=== PATIENT | male | born 1970 | race Asian ===

== ENCOUNTER 2024-03-29 21:42 | Observation (INO) ==
[2024-03-29 22:01] VITALS: O2SAT 97
[2024-03-29 22:08] LABS: Basophils # (auto) 0.02 K/uL (0.00-0.20); Basophils % (auto) 0.3 %; Eosinophils # (auto) 0.06 K/uL (0.00-0.50); Eosinophils % (auto) 0.9 %; Hematocrit (blood only) 46.7 % (42.0-52.0); Immature Granulocytes # (auto) 0.02 K/uL (0.01-0.20); Immature Granulocytes % (auto) 0.3 %; Lymphocytes # (auto) 2.38 K/uL (1.20-3.40); Lymphocytes % (auto) 34.7 %; Mean Corpuscular Hemoglobin 29.9 pg (25.0-34.0); Mean Corpuscular Hgb Conc 34.3 g/dL (32.0-36.0); Mean Corpuscular Volume 87.1 fL (80.0-100.0); Mean Platelet Volume 9.2 fL (9.4-12.4); Monocytes # (auto) 0.36 K/uL (0.11-0.59); Monocytes % (auto) 5.2 %; Neutrophils # (auto) 4.02 K/uL (1.40-6.50); Neutrophils % (auto) 58.6 %; Platelet Count 181 K/uL (130-400); RDW Coefficient of Variation 12.7 % (11.5-14.5); RDW Standard Deviation 39.6 fL (36.4-46.3); Red Blood Count 5.36 M/uL (4.70-6.10); White Blood Count 6.86 K/ul (4.8-10.8)
[2024-03-29 22:24] LABS: Albumin Globulin Ratio 1.4 (0.9-2); Albumin Level 4.2 gm/dl (3.4-5.0); BUN Creatinine Ratio 13.8 (10-20); Bilirubin,Total 0.9 mg/dl (0.2-1.0); Calcium 8.4 mg/dl (8.6-10.3); Creatinine Clr Calc Pharmacy 64.1 ml/min; Est GFR (African American) 82.9 ml/min; Est GFR (Non-African American) 71.5 ml/min; Magnesium 2.1 mg/dl (1.7-2.4); Potassium 4.2 mmol/L (3.5-5.1); Total Protein 7.2 gm/dl (6.0-8.3)
[2024-03-29 22:30] LABS: Troponin I High Sensitivity 21.3 pg/ml (0-20)
[2024-03-29 22:32] LABS: Prothrombin Time 10.9 Seconds (9.0-12.0)
[2024-03-29 22:52] LABS: Appearance Urine Clear (Clear); Bilirubin Urine Negative (Negative); Blood Urine Negative (Negative); Color Urine Yellow; Glucose Urine UA 2+ (Negative); Ketones Urine Negative (Negative); Leukocyte Esterase Urine Negative (Negative); Nitrite Urine Negative (Negative); Protein Urine Negative (Negative); Specific Gravity Urine 1.006 (1.000-1.030); Urobilinogen Urine Negative (Negative)
[2024-03-29 23:01] LABS: Adenovirus PCR Not Detected (NotDetected); Bordetella parapertussis PCR Not Detected (NotDetected); Bordetella pertussis PCR Not Detected (NotDetected); Chlamydia pneumoniae PCR Not Detected (NotDetected); Coronavirus 229E PCR Not Detected (NotDetected); Coronavirus CoV-2 (COVID19)PCR Not Detected (NotDetected); Coronavirus HKU1 PCR Not Detected (NotDetected); Coronavirus NL63 PCR Not Detected (NotDetected); Coronavirus OC43PCR Not Detected (NotDetected); Human Metapneumovirus PCR Not Detected (NotDetected); Influenza A PCR Not Detected (NotDetected); Influenza B PCR Not Detected (NotDetected); Mycoplasma pneumoniae PCR Not Detected (NotDetected); Parainfluenza Virus 1 PCR Not Detected (NotDetected); Parainfluenza Virus 2 PCR Not Detected (NotDetected); Parainfluenza Virus 3 PCR Not Detected (NotDetected); Parainfluenza Virus 4 PCR Not Detected (NotDetected); Respiratory Syncytial VirusPCR Not Detected (NotDetected); Rhinovirus/Enterovirus PCR Not Detected (NotDetected)
[2024-03-29 23:25] LABS: D Dimer 350 ug/L FEU (0-500)
--- NOTE | 2024-03-29 23:36 | Emergency Department Note ---
Impression & Plan Chest pain, Elevated troponin, Hypertension, Acute hyperglycemia ED Provider Note NAME: JEANETH OSEGUERA AGE: 54 SEX: M : 1970 ARRIVES VIA: Ambulance INFORMANT: Patient ED PROVIDER(S): Cristofer Marcelo DO CHIEF COMPLAINT: shortness of breath HPI: Patient is a 54-year-old male with a past medical history of CAD and 3 previous stents placed last year who presents to the ER for shortness of breath that he has been having off and on for the past couple days. He notes if he eats it goes away within about 30 minutes. He has also noticed some exertional shortness of breath of the past 2 days with walking. He was seen and evaluated at an outside facility had unremarkable workup yesterday and was discharged. Denies any headache. He will intermittently get some chest tightness with the shortness of breath which occurs with "going up steps or walking. No dysuria, urgency, or frequency. No swelling of his cast. No coughing up blood. ADDITIONAL HISTORY OBTAINED: Per HPI Chronic Medical/Social Conditions Affecting Care: Per HPI PAST MEDICAL HISTORY:See Below PAST SURGICAL HISTORY:See Below FAMILY HISTORY:See Below SOCIAL HISTORY:See Below HOME MEDICATIONS:See Below ALLERGIES:See Below VITALS:See Below PHYSICAL EXAMINATION: GENERAL: Sitting up in bed, alert, well appearing, well nourished, no distress, non-toxic EYE EXAM: normal conjunctiva. PERRL and EOM's grossly intact. OROPHARYNX: no exudate, no erythema, lips, buccal mucosa, and tongue normal and mucous membranes are moist NECK: supple, no nuchal rigidity, no adenopathy, non-tender LUNGS: Clear to auscultation. Normal chest wall mechanics HEART: no murmurs, S1 normal and S2 normal ABDOMEN: abdomen soft, non-tender, normo-active bowel sounds, no masses, no rebound or guarding. UPPER EXTREMITIES: upper extremities are grossly normal. LOWER EXTREMITIES: No pitting edema. Calves are cold bilaterally NEURO EXAM: Normal sensorium, cranial nerves II-XII intact, normal speech, no gross weakness of arms, no gross weakness of legs. MEDICAL DECISION MAKING: Patient is a 54-year-old male who presents ER for the above-stated complaint. IV was established medicos obtained. Labs show no significant leukocytosis or anemia. INR unremarkable. D-dimer was negative and otherwise low risk patient. BMP with mild hyponatremia 134. Glucose slightly up at 242. LFTs bilirubin was unremarkable. Troponin mildly elevated 21. UA was clean. Viral panel was negative. Patient was given aspirin and initially he was asymptomatic but he did have a brief episode of shortness of breath and consequently was given nitro. This did assist with the blood pressures as well. Patient was discussed with the hospitalist for further evaluation management treatment. Consults/Care Managements Discussions: Per MDM Triage Nursing notes reviewed. Limited review of prior medical records performed Vital Signs: reviewed and remarkable for htn Differential diagnosis: Differential diagnoses includes but is not limited to pneumonia, bronchitis, COPD/Asthma exacerbation, pneumothorax, pulmonary embolism, congestive heart failure, acute coronary syndrome ER treatment provided: See below Diagnostics interpreted by me include EKG and cardiac monitoring as listed below: -Cardiac Monitoring: An order was placed for continuous cardiac monitoring. The monitor shows a rate of 101 with sinus rhythm. -ECG: Sinus tachycardia rate of 104 Left axis No PVCs QTc 436 -Laboratory studies:Interpreted by me as stated above in MDM and shown below. Imaging studies: Xrays: As interpreted by me: Portable AP upright 1 view of the chest shows no focal Lutrate CTs show: none Procedures:none Critical Care: None Past Med/Surg History Problem List (Updated 03/30/24 @ 01:13 by Cristofer Marcelo DO) Acute hyperglycemia (Acute) Hypertension (Acute) Elevated troponin (Acute) Chest pain (Acute) Social History Smoking Status: Never smoker Preferred Language: Serbian Feels Safe at Home: Yes Allergies Allergies Allergy/AdvReac Type Severity Reaction Status Date / Time amoxicillin Allergy Intermediate ITCHY RASH Verified 03/29/24 22:46 clopidogrel [From Plavix] Allergy Intermediate ITCHY RASH Verified 03/29/24 22:46 Penicillins Allergy Intermediate ITCHY RASH Verified 03/29/24 22:46 Home Meds Home Medications Medication Instructions Recorded Confirmed aspirin 81 mg tablet,delayed 81 mg PO DAILY 03/29/24 03/29/24 release dapagliflozin propanediol 10 mg 10 mg PO DAILY 03/29/24 03/29/24 tablet (Farxiga) losartan 25 mg tablet 12.5 mg PO DAILY 03/29/24 03/29/24 metoprolol succinate 50 mg 50 mg PO DAILY 03/29/24 03/29/24 tablet,extended release 24 hr prasugrel 10 mg tablet 10 mg PO DAILY 03/29/24 03/29/24 rosuvastatin 20 mg tablet 20 mg PO DAILY 03/29/24 03/29/24 Results & Data (ED) Vital Signs Vital Signs - 24 hr 03/29/24 21:51 03/29/24 21:51 03/29/24 21:51 Temperature 36.6 C Temperature Source Oral Pulse Rate 100 H Pulse Rate [Apical] Pulse Rhythm Regular Pulse Strength Normal Respiratory Rate 18 Respiratory Effort / Characteristics Non-Labored Spontaneous Non-Labored Spontaneous Respiratory Depth Normal Normal Respiratory Pattern Regular Regular Blood Pressure 154/112 H Blood Pressure [Left Arm] Blood Pressure Mean 126 Blood Pressure Mean [Left Arm] Blood Pressure Position Sitting Pulse Oximetry 97 97 Oxygen Delivery Method Room Air Room Air Sepsis Recent Fever Within 48 Hours No Sepsis New/Unexplained Change in Mental Status No Sepsis Action Taken by Nursing No Action Required 03/29/24 22:01 03/29/24 22:02 03/29/24 23:47 Temperature Temperature Source Pulse Rate 100 H 101 H Pulse Rate [Apical] 104 H Pulse Rhythm Regular Pulse Strength Respiratory Rate 16 15 Respiratory Effort / Characteristics Respiratory Depth Respiratory Pattern Blood Pressure Blood Pressure [Left Arm] 167/120 H Blood Pressure Mean Blood Pressure Mean [Left Arm] 135 Blood Pressure Position Pulse Oximetry 97 97 Oxygen Delivery Method Room Air Room Air Sepsis Recent Fever Within 48 Hours Sepsis New/Unexplained Change in Mental Status Sepsis Action Taken by Nursing 03/30/24 01:04 Temperature Temperature Source Pulse Rate Pulse Rate [Apical] 99 H Pulse Rhythm Pulse Strength Respiratory Rate 24 Respiratory Effort / Characteristics Non-Labored Spontaneous Respiratory Depth Normal Respiratory Pattern Regular Blood Pressure Blood Pressure [Left Arm] 149/107 H Blood Pressure Mean Blood Pressure Mean [Left Arm] 121 Blood Pressure Position Pulse Oximetry 97 Oxygen Delivery Method Room Air Sepsis Recent Fever Within 48 Hours Sepsis New/Unexplained Change in Mental Status Sepsis Action Taken by Nursing Laboratory Data 03/29/24 21:50 03/29/24 21:50 Lab Results 03/29/24 03/29/24 03/29/24 Range/Units 21:50 22:03 22:21 WBC 6.86 (4.8-10.8) K/ul RBC 5.36 (4.70-6.10) M/uL Hgb 16.0 (14.0-18.0) g/dl Hct 46.7 (42.0-52.0) % MCV 87.1 (80.0-100.0) fL MCH 29.9 (25.0-34.0) pg MCHC 34.3 (32.0-36.0) g/dL RDW Std Deviation 39.6 (36.4-46.3) fL RDW Coeff of Tayler 12.7 (11.5-14.5) % Plt Count 181 (130-400) K/uL MPV 9.2 L (9.4-12.4) fL Immature Gran % (Auto) 0.3 % Neut % (Auto) 58.6 % Lymph % (Auto) 34.7 % Bullitt % (Auto) 5.2 % Eos % (Auto) 0.9 % Baso % (Auto) 0.3 % Neut # (Auto) 4.02 (1.40-6.50) K/uL Lymph # (Auto) 2.38 (1.20-3.40) K/uL Bullitt # (Auto) 0.36 (0.11-0.59) K/uL Eos # (Auto) 0.06 (0.00-0.50) K/uL Baso # (Auto) 0.02 (0.00-0.20) K/uL Immature Gran # (Auto) 0.02 (0.01-0.20) K/uL PT 10.9 (9.0-12.0) Seconds INR 1.0 (0.9-1.1) D-Dimer 350 (0-500) ug/L FEU VBG pH (7.36-7.41) VBG pCO2 (38-50) mmHg VBG pO2 mmHg VBG HCO3 mmol/L VBG O2 Saturation % VBG Base Excess mEq/L Sodium 134 L (136-145) mmol/L Potassium 4.2 (3.5-5.1) mmol/L Chloride 102 (98-107) mmol/L Carbon Dioxide 29 (21-32) mmol/L Anion Gap 3 (3-11) BUN 16 (6-23) mg/dl Creatinine 1.16 (0.6-1.4) mg/dl Est Cr Clr Drug Dosing 64.1 ml/min Est GFR ( Amer) 82.9 ml/min Est GFR (Non-Af Amer) 71.5 ml/min BUN/Creatinine Ratio 13.8 (10-20) Glucose 242 H (70-99(Fasting)) mg/dl Calcium 8.4 L (8.6-10.3) mg/dl Magnesium 2.1 (1.7-2.4) mg/dl Total Bilirubin 0.9 (0.2-1.0) mg/dl AST 21 (13-39) U/L ALT 22 (7-52) U/L Alkaline Phosphatase 95 (34-104) U/L Troponin I High Sens 21.3 H (0-20) pg/ml B-Natriuretic Peptide (0-100) pg/ml Total Protein 7.2 (6.0-8.3) gm/dl Albumin 4.2 (3.4-5.0) gm/dl Globulin 3.0 (2.5-4.0) gm/dl Albumin/Globulin Ratio 1.4 (0.9-2) Urine Color Yellow Urine Appearance Clear (Clear) Urine pH 6.0 (4.5-7.5) Ur Specific Bishop 1.006 (1.000-1.030) Urine Protein Negative (Negative) Urine Glucose (UA) 2+ H (Negative) Urine Ketones Negative (Negative) Urine Blood Negative (Negative) Urine Nitrite Negative (Negative) Urine Bilirubin Negative (Negative) Urine Urobilinogen Negative (Negative) Ur Leukocyte Esterase Negative (Negative) Adenovirus (PCR) Not Detected (NotDetected) B. pertussis DNA (PCR) Not Detected (NotDetected) B.parapertussis DNA PCR Not Detected (NotDetected) C. pneumoniae DNA (PCR) Not Detected (NotDetected) Coronavirus OC43 (PCR) Not Detected (NotDetected) Coronavirus HKU1 (PCR) Not Detected (NotDetected) Coronavirus 229E (PCR) Not Detected (NotDetected) SARS-CoV-2 (PCR) Not Detected (NotDetected) Coronavirus NL63 (PCR) Not Detected (NotDetected) Human Metapneumovir PCR Not Detected (NotDetected) Influenza Type A (PCR) Not Detected (NotDetected) Influenza Type B (PCR) Not Detected (NotDetected) M. pneumoniae (PCR) Not Detected (NotDetected) Parainfluenza 1 (PCR) Not Detected (NotDetected) Parainfluenza 2 (PCR) Not Detected (NotDetected) Parainfluenza 3 (PCR) Not Detected (NotDetected) Parainfluenza 4 (PCR) Not Detected (NotDetected) RSV (PCR) Not Detected (NotDetected) Entero/Rhino (PCR) Not Detected (NotDetected) 03/29/24 Range/Units 23:46 WBC (4.8-10.8) K/ul RBC (4.70-6.10) M/uL Hgb (14.0-18.0) g/dl Hct (42.0-52.0) % MCV (80.0-100.0) fL MCH (25.0-34.0) pg MCHC (32.0-36.0) g/dL RDW Std Deviation (36.4-46.3) fL RDW Coeff of Tayler (11.5-14.5) % Plt Count (130-400) K/uL MPV (9.4-12.4) fL Immature Gran % (Auto) % Neut % (Auto) % Lymph % (Auto) % Bullitt % (Auto) % Eos % (Auto) % Baso % (Auto) % Neut # (Auto) (1.40-6.50) K/uL Lymph # (Auto) (1.20-3.40) K/uL Bullitt # (Auto) (0.11-0.59) K/uL Eos # (Auto) (0.00-0.50) K/uL Baso # (Auto) (0.00-0.20) K/uL Immature Gran # (Auto) (0.01-0.20) K/uL PT (9.0-12.0) Seconds INR (0.9-1.1) D-Dimer (0-500) ug/L FEU VBG pH 7.41 (7.36-7.41) VBG pCO2 48 (38-50) mmHg VBG pO2 39 mmHg VBG HCO3 30 mmol/L VBG O2 Saturation 64.6 % VBG Base Excess 4.8 mEq/L Sodium (136-145) mmol/L Potassium (3.5-5.1) mmol/L Chloride (98-107) mmol/L Carbon Dioxide (21-32) mmol/L Anion Gap (3-11) BUN (6-23) mg/dl Creatinine (0.6-1.4) mg/dl Est Cr Clr Drug Dosing ml/min Est GFR ( Amer) ml/min Est GFR (Non-Af Amer) ml/min BUN/Creatinine Ratio (10-20) Glucose (70-99(Fasting)) mg/dl Calcium (8.6-10.3) mg/dl Magnesium (1.7-2.4) mg/dl Total Bilirubin (0.2-1.0) mg/dl AST (13-39) U/L ALT (7-52) U/L Alkaline Phosphatase (34-104) U/L Troponin I High Sens 24.2 H (0-20) pg/ml B-Natriuretic Peptide 278 H (0-100) pg/ml Total Protein (6.0-8.3) gm/dl Albumin (3.4-5.0) gm/dl Globulin (2.5-4.0) gm/dl Albumin/Globulin Ratio (0.9-2) Urine Color Urine Appearance (Clear) Urine pH (4.5-7.5) Ur Specific Bishop (1.000-1.030) Urine Protein (Negative) Urine Glucose (UA) (Negative) Urine Ketones (Negative) Urine Blood (Negative) Urine Nitrite (Negative) Urine Bilirubin (Negative) Urine Urobilinogen (Negative) Ur Leukocyte Esterase (Negative) Adenovirus (PCR) (NotDetected) B. pertussis DNA (PCR) (NotDetected) B.parapertussis DNA PCR (NotDetected) C. pneumoniae DNA (PCR) (NotDetected) Coronavirus OC43 (PCR) (NotDetected) Coronavirus HKU1 (PCR) (NotDetected) Coronavirus 229E (PCR) (NotDetected) SARS-CoV-2 (PCR) (NotDetected) Coronavirus NL63 (PCR) (NotDetected) Human Metapneumovir PCR (NotDetected) Influenza Type A (PCR) (NotDetected) Influenza Type B (PCR) (NotDetected) M. pneumoniae (PCR) (NotDetected) Parainfluenza 1 (PCR) (NotDetected) Parainfluenza 2 (PCR) (NotDetected) Parainfluenza 3 (PCR) (NotDetected) Parainfluenza 4 (PCR) (NotDetected) RSV (PCR) (NotDetected) Entero/Rhino (PCR) (NotDetected) Administered Medications Discontinued Medications Aspirin (Aspirin Chew 324 Mg) 324 mg PO NOW STA Stop: 03/29/24 23:28 Last Admin: 03/29/24 23:45 Dose: 324 mg Documented By: MED Metoprolol Tartrate (Metoprolol Tartrate 50 Mg Tab) 50 mg PO NOW STA Stop: 03/30/24 00:10 Last Admin: 03/30/24 01:03 Dose: 50 mg Documented By: MED Nitroglycerin (Nitroglycerin Sl 0.4 Mg/Tab Tab) 0.4 mg SL NOW STA Stop: 03/29/24 23:33 Last Admin: 03/29/24 23:46 Dose: 0.4 mg Documented By: MED Discharge Plan Visit Data Chief Complaint: Shortness of Breath/Dyspnea Stated Complaint: SOB, HYPERTENSION ED Provider: Cristofer Marcelo Discharge Problem: Chest pain, Elevated troponin, Hypertension, Acute hyperglycemia Forms Stand Alone Forms: My [facility] [employer] Medical Prescriptions Prescriptions: No Action metoprolol succinate 50 mg Tablet Extended Release 24 Hr 50 mg PO DAILY aspirin 81 mg Tablet,Delayed Release (Dr/Ec) 81 mg PO DAILY losartan 25 mg Tablet 12.5 mg PO DAILY rosuvastatin 20 mg Tablet 20 mg PO DAILY prasugrel 10 mg Tablet 10 mg PO DAILY dapagliflozin propanediol [Farxiga] 10 mg Tablet 10 mg PO DAILY Referrals Referrals: Nathalia Larson, PAJoshuaC [Primary Care Provider] - Discharge Problem: Chest pain Qualifiers: Chest pain type: unspecified Qualified Code(s): R07.9 - Chest pain, unspecified Hypertension Qualifiers: Hypertension type: unspecified Qualified Code(s): I10 - Essential (primary) hypertension
[2024-03-29] MEDS: ASPIRIN CHEW 324 MG PO STA (23:45)
[2024-03-29] MEDS: NITROGLYCERIN SL 0.4 MG/TAB TAB SL STA (23:46)
[2024-03-29 23:51] LABS: Base Excess VBG 4.8 mEq/L; HCO3 VBG 30 mmol/L; Oxygen Saturation VBG 64.6 %; PCO2 VBG 48 mmHg (38-50); PO2 VBG 39 mmHg; pH VBG 7.41 (7.36-7.41)
--- NOTE | 2024-03-30 00:21 | History & Physical Report ---
Date of Service March 30, 2024 Assessment & Plan (1) Shortness of breath: Plan: -Respiratory BioFire negative. Patient with shortness of breath mostly on exertion -VBG negative. -CMP benign, did show a glucose of 242 as well as having 2+ glucose in the urine . -BNP of 278. -Troponin of 21, 2-hour repeat was 24. Continue monitoring every 6 hours until peak. -No official read on chest x-ray, benign in nature. -Sinus tach on EKG. -Patient does have a history of 3 stents placed done at [facility] in [place] back in September 2022. -Echo ordered and pending. -CBC, CMP, hemoglobin A1c, lipid panel, magnesium ordered for the a.m. -Cardiology referral -Anticipate discharge in the a.m. (2) Chest pain: Plan: -As above (3) Elevated troponin: Plan: -Slight elevation at time of admission, continue to monitor every 6 hours till peak. (4) Hypertension: Plan: -Patient did take blood pressure medication today. Still elevated with a high pulse in the ED at time of admission. Will give an extra dose of metoprolol tartrate. -Continue home medications. (5) Acute hyperglycemia: Plan: -Patient is on Farxiga. -Hemoglobin A1c in the a.m. -Holding Farxiga, sliding scale insulin (6) History of coronary artery stent placement: Plan: -Unsure of exact history, states that he had 3 stents placed at [facility] in [place]. Supposed to continue on aspirin and prasugrel. History of Present Illness Chief Complaint: Chest pain, shortness of breath, elevated troponin Primary Care Provider: Nathalia Larson PA-C Patient is a 54-year-old male who presents to the hospital with shortness of breath. Patient has been having some shortness of breath the last few days. States that when he feels hungry states that shortness of breath and that it gets better with eating. He also states that he is having some chest tightness with the shortness of breath. States that he is also having some shortness of breath with exertion that has been going on for some time. He went to see the ER yesterday in [place]. States that that he was checked for a clot in his lung which was negative. Does have a history of 3 stents placed back in September 2022 at the same hospital that he went to the emergency room yesterday. Patient was up visiting his son who goes to [facility]. Denies any fever, chills, headache, or cough. Allergies Allergy/AdvReac Type Severity Reaction Status Date / Time amoxicillin Allergy Intermediate ITCHY RASH Verified 03/29/24 22:46 clopidogrel [From Plavix] Allergy Intermediate ITCHY RASH Verified 03/29/24 22:46 Penicillins Allergy Intermediate ITCHY RASH Verified 03/29/24 22:46 Home Medications Medication Instructions Recorded Confirmed Type aspirin 81 mg tablet,delayed 81 mg PO DAILY 03/29/24 03/29/24 History release dapagliflozin propanediol 10 mg 10 mg PO DAILY 03/29/24 03/29/24 History tablet (Farxiga) losartan 25 mg tablet 12.5 mg PO DAILY 03/29/24 03/29/24 History metoprolol succinate 50 mg 50 mg PO DAILY 03/29/24 03/29/24 History tablet,extended release 24 hr prasugrel 10 mg tablet 10 mg PO DAILY 03/29/24 03/29/24 History rosuvastatin 20 mg tablet 20 mg PO DAILY 03/29/24 03/29/24 History Past Med/Surg History Problem List (Updated 03/30/24 @ 02:13 by Rhys Sosa DO) History of coronary artery stent placement Shortness of breath Acute hyperglycemia (Acute) Hypertension (Acute) Elevated troponin (Acute) Chest pain (Acute) Social History Smoking Status: Never smoker Hx Alcohol Use: No Hx Substance Use: No Preferred Language: Ethiopian Communication Ability: Effective Top Knitter Required: No Beliefs That Will Affect Care: None Current Living Situation: Spouse Current Living Situation Comment: Lives at home with Other Information That Helps Us Care for You: No Feels Safe at Home: Yes Safety Concerns: Feels Safe At This Time Assistive Devices: None Review of Systems Review of Systems: All systems reviewed & are unremarkable except as noted in Subjective Physical Exam Physical Exam: Constitutional: well-appearing, no acute distress HEENT: NCAT, no conjunctival injection CV: regular rhythm, no murmur appreciated, extremities well-perfused, no LE edema Resp: CTABL, no wheezes/rales/rhonchi appreciated, no increased work of breathing GI: soft, nondistended, nontender, BS normoactive MSK: no gross deformities appreciated Skin: warm, dry, no rash appreciated Neuro: alert, oriented, no focal neurologic deficit appreciated Results & Data Results & Data Vital Signs (Past 12 Hours) Vital Signs Temp Pulse Pulse Resp BP BP Pulse Ox 03/29/24 23:47 104 H 15 167/120 H 97 03/29/24 22:02 101 H 03/29/24 22:01 100 H 16 97 03/29/24 21:51 97 03/29/24 21:51 36.6 C 100 H 18 154/112 H 97 O2 Del Method 03/29/24 23:47 Room Air 03/29/24 22:02 03/29/24 22:01 Room Air 03/29/24 21:51 Room Air 03/29/24 21:51 Room Air Supervising Physician Co-Signing Physician Notes Attending addendum: I have physically seen this patient, have supervised the medical residents activities, and agree with the H&P unless as otherwise noted. Assessment and Plan: Elevated troponin/CAD/coronary artery stents x 3/hypertension- The patient will be admitted to telemetry for serial cardiac enzymes, serial EKG's, cardiac rhythm monitoring and a 2-D echocardiogram with Dopplers. Troponin 21.3 on admission with follow-up pending Continue aspirin 81 mg daily Patient had been on clopidogrel, however this was thought to cause a rash, and has since been continued on prasugrel Patient reports that he has had issues with being hungry, and associated shortness of breath, which has difficulty associating clearly with other medi cations including Farxiga, metoprolol, and antiplatelet agents He reports that there are times his blood pressure dropped down to 90/60, and his metoprolol succinate had been decreased from 100 mg daily to 50 mg daily in the a.m. Losartan had also been decreased from 25 to 12.5 mg daily For now, we will hold losartan Will change metoprolol succinate to 25 mg p.o. twice daily with hold parameters, to prevent excessive load of beta-liliya at 1 time, and give a more 24-hour long level Will give a one-time dose of metoprolol tartrate this evening due to timing of medications associated with travel Consult cardiology Diabetes mellitus- Hold Farxiga Question whether there may be an element of hypoglycemia unawareness associated with metoprolol, and will adjust as above Place on Accu-Cheks with coverage as noted Hyperlipidemia- Continue rosuvastatin Resident Activity Tracking Resident Involvement: Resident Care Provided Care Provided: Adult Hospital Medicine (2) Chest pain Chest pain type: unspecified Qualified Code(s): R07.9 - Chest pain, unspecified (4) Hypertension Hypertension type: unspecified Qualified Code(s): I10 - Essential (primary) hypertension
[2024-03-30] MEDS: METOPROLOL TARTRATE 50 MG TAB PO STA (01:03)
[2024-03-30] MEDS ORDERED: CARBOHYDRATES FOR HYPOGLYCEMIA PO PRN (02:37)
[2024-03-30] MEDS ORDERED: GLUCAGON FOR INJ 1 MG VIAL SQ PRN (02:37)
[2024-03-30] MEDS ORDERED: GLUCOSE 40% GEL 15 GM TUBE PO PRN (02:37)
[2024-03-30] MEDS ORDERED: DEXTROSE 50% 50 ML SYRINGE IV PRN (02:37)
[2024-03-30] MEDS ORDERED: ACETAMINOPHEN 325 MG TAB PO PRN (02:37)
[2024-03-30] MEDS ORDERED: GLUCOSE 10 TAB/TUBE PO PRN (02:37)
[2024-03-30 04:51] VITALS: RESP 16
--- NOTE | 2024-03-30 07:28 | XRay Report ---
XR chest 1V portable CLINICAL HISTORY: Dyspnea. COMPARISON STUDY: No previous studies for comparison. FINDINGS: Lung volumes are normal. There is no pneumothorax or pleural effusion. Cardiac size is at t he upper limits of normal. There is lower lobe predominant interstitial thickening with hazy right ba silar opacity. IMPRESSION: Lower lung predominant interstitial thickening with hazy right basilar opacity. Mild int erstitial pulmonary edema is favored. An infectious process could appear similar although is consider ed less likely. ACT 112: Negative or not required by law. Electronically signed by: Mark Winslow M.D. 03/30/2024 7:27 AM
--- NOTE | 2024-03-30 07:29 | Electrocardiogram Report ---
Test Reason : Blood Pressure : */* mmHG Vent. Rate : 104 BPM Atrial Rate : 104 BPM P-R Int : 174 ms QRS Dur : 76 ms QT Int : 332 ms P-R-T Axes : 63 -47 80 degrees QTcB Int : 436 ms Sinus tachycardia Biatrial enlargement Left anterior fascicular block Left ventricular hypertrophy Poor R wave progression, consider anterior HI vs. lead placement vs. LVH Lateral infarct , age undetermined Abnormal ECG No previous ECGs available Confirmed by David Mcdowell ([id number]) on 03/30/2024 7:29:42 AM Referred By: REFERRED SELF Confirmed By: David Mcdowell
[2024-03-30 07:42] LABS: Chol HDL Ratio 3.9 (0-5)
[2024-03-30] MEDS: INSULIN ASPART PER UNIT CHARGE SC SCH (08:51)
[2024-03-30] MEDS: ASPIRIN 81 MG ECTAB PO SCH (08:52)
[2024-03-30] MEDS: METOPROLOL SUCC 25MG EXT REL TAB PO SCH (08:53)
[2024-03-30] MEDS: ROSUVASTATIN CALCIUM 20 MG TAB PO SCH (08:53)
[2024-03-30] MEDS: PRASugrel TAB 10 MG TAB PO SCH (08:53)
[2024-03-30] MEDS ORDERED: LOSARTAN POTASSIUM 25 MG TAB PO SCH (09:00)
[2024-03-30] MEDS ORDERED: METOPROLOL SUCC 50MG EXT REL TAB PO SCH (09:00)
[2024-03-30 09:13] LABS: Estimated Average Glucose 126 mg/dl
--- NOTE | 2024-03-30 09:56 | XCELERA ---
[id number]
--- NOTE | 2024-03-30 09:59 | Hospitalist Progress Note ---
Date of Service March 30, 2024 Assessment & Plan (1) Shortness of breath: Plan: -Respiratory BioFire negative. Patient with shortness of breath mostly on exertion -VBG negative. -CMP benign, did show a glucose of 242 as well as having 2+ glucose in the urine . -BNP of 278. -Troponin of 21, 2-hour repeat was 24. Continue monitoring every 6 hours until peak. -No official read on chest x-ray, benign in nature. -Sinus tach on EKG. -Patient does have a history of 3 stents placed done at Replaced by [facility] in [place] back in September 2022. -Echo ordered and pending. -CBC, CMP, hemoglobin A1c, lipid panel, magnesium ordered for the a.m. -Cardiology referral -Anticipate discharge in the a.m. (2) Chest pain: Plan: -As above (3) Elevated troponin: Plan: -Slight elevation at time of admission, continue to monitor every 6 hours till peak. (4) Hypertension: Plan: -Patient did take blood pressure medication today. Still elevated with a high pulse in the ED at time of admission. Will give an extra dose of metoprolol tartrate. -Continue home medications. (5) Acute hyperglycemia: Plan: -Patient is on Farxiga. -Hemoglobin A1c in the a.m. -Holding Farxiga, sliding scale insulin (6) History of coronary artery stent placement: Plan: -Unsure of exact history, states that he had 3 stents placed at Replaced by [facility] in [place]. Supposed to continue on aspirin and prasugrel. Admission and Anticipated Discharge Date Admission Date: March 30, 2024 Everton Hong is a 54 y/o M with a past medical history of CAD, PCI and IMAN x3 September 2022. The patient presents to the ED due to episodes of SOB that seem to occur when patient gets hungry. He reports that the symptoms first began in November but very infrequently only reporting two instances of SOB. The episodes seem to last approximately 5-10 minutes and our relieved after eating. In December and January the patient reports eating spicier more greasy foods with some abdominal pain increased BMs, but no SOB. In February the patient reports that he was seen in the ED 1 week prior due to SOB that took longer to resolve approximately 30 minutes. He was discharged after a full cardiac work-up without abnormalities. The patient drove to [facility] on Sunday to help his son begin college. The patient's SOB occurred on Sunday and Sunday, and he decided to come into the [facility] ED on Sunday due to SOB that did not resolve for 30-40 min and because his BP was also in the 180s systolic. The patient has regular cardiology appointments and reports that he will contact his senior ux designer on discharge to expedite his next scheduled appointment. The patient is regularly active, and reports playing tennis frequently without SOB, symptoms occur at rest and mostly when the patient reports being hungry and feeling increased acidity. The patient also reports some chest discomfort, but reports that the quality of the discomfort is different from his chest pain back in September 2022, and reports that he has had some on and off chest discomfort since September 2022 that his senior ux designer corroborated as a potential sequelae of the patient's stent placement. Today the patient has not had any SOB or feelings of reflux. The patient denies fevers, chills, chest pain, abdominal pain, nausea, vomiting, SOB, cough, and wheeze. The patient does not report any adverse event overnight or acute concerns. Physical Exam Physical Exam: General: patient resting comfortably, NAD, non-toxic in appearance, answers questions appropriately. Skin: warm, dry, intact HEENT: NC/AT, anicteric sclera, conjunctiva without injection, moist mucus membranes. Heart: +S1/S2, regular, no m/r/g Lungs: equal air entry bilaterally, no rales/rhonchi/wheezes Abd: +BS, soft, NT/ND Ext: warm, no clubbing/cyanosis or edema Neuro: nonfocal, speech intact, no facial droop, moving all extremities. Results & Data Results & Data Vital Signs (Past 12 Hours) Vital Signs Temp Pulse Pulse Resp BP BP Pulse Ox 03/30/24 08:00 72 03/30/24 03:39 36.6 C 87 16 141/107 H 97 03/30/24 02:31 89 03/30/24 02:30 36.9 C 92 H 20 138/101 H 97 03/30/24 01:53 20 97 03/30/24 01:04 99 H 24 149/107 H 97 03/29/24 23:47 104 H 15 167/120 H 97 03/29/24 22:02 101 H 03/29/24 22:01 100 H 16 97 O2 Del Method 03/30/24 08:00 03/30/24 03:39 Room Air 03/30/24 02:31 03/30/24 02:30 Room Air 03/30/24 01:53 Room Air 03/30/24 01:04 Room Air 03/29/24 23:47 Room Air 03/29/24 22:02 03/29/24 22:01 Room Air Resident Activity Tracking Resident Involvement: Resident Care Provided Care Provided: Adult Hospital Medicine (2) Chest pain Chest pain type: unspecified Qualified Code(s): R07.9 - Chest pain, unspecified (4) Hypertension Hypertension type: unspecified Qualified Code(s): I10 - Essential (primary) hypertension
--- NOTE | 2024-03-30 10:14 | Cardiology Consultation ---
Date of Consultation March 30, 2024 Assessment & Plan (1) Coronary artery disease: (2) Ischemic cardiomyopathy: (3) Acute on chronic systolic heart failure: (4) Shortness of breath: (5) Hyperlipidemia: (6) Hypertension: Plan 1. Shortness of breath: His symptoms are curious and that they are paroxysmal and tend to happen at rest. This would be less likely with a cardiac etiology. It is possible this is related to his cardiomyopathy and pulmonary vascular congestion as his BNP is high and he does have interstitial edema on his x-ray. However, he otherwise has been feeling well and does not report exertional dyspnea or orthopnea. It is possible it is related to a transient arrhythmia although none has been documented. I think this is more likely a noncardiac etiology such as reflux or possibly hypoglycemia. 2. Coronary artery disease: History of percutaneous intervention to the LAD and another vessel. He has not had recurrence of his index symptoms. He is been doing vigorous activity without symptoms of chest discomfort. There is no evidence of an acute coronary syndrome. I think he should simply continue aggressive secondary prevention with his dual antiplatelet therapy, metoprolol and high-dose rosuvastatin. 3. Ischemic cardiomyopathy: He is known to have an element of reduced LV systolic function by report. It seems his current LV function is in the range previously described. Certainly not normal. He is on a good medical regimen to include metoprolol succinate, ARB and Farxiga. Additional interventions can be discussed with his primary diving instructor. 4. Decompensated acute systolic heart failure: He has an element of both s ystolic and diastolic dysfunction. I do suspect he has an element of pulmonary vascular congestion. Unclear if this is related to his paroxysmal symptoms. Nonetheless, we will provide him with a dose of diuretic to see if this affects improvement. 5. Tachycardia: He does have a documented sinus tachycardia. Other episodes of tachycardia recorded on his watch have been mentioned. Unclear if this is associated with his symptoms. More likely a response to his symptoms rather than a cause. Unclear if there is an otherwise on documented SVT causing his symptoms. He can continue outpatient monitoring. 6. Hypertension: He has noticed some increases in his blood pressure recently. He was hypertensive at the time of admission. He seems to monitor his blood pressure fairly closely at home. Occasionally he will skip his losartan. I would suggest he continue taking his medications regularly. An initial intervention could be doubling his losartan dose or a switch to Entresto. 7. Mitral regurgitation: Moderate. This can be followed over time. History of Present Illness Reason for Consultation: Dyspnea, history of heart disease Requesting Physician: Ian Attending Physician: Cristofer Benites DO History of Present Illness The patient is a 54-year-old gentleman with a history of coronary artery disease having previously undergone percutaneous intervention in September 2021. The patient recalls some symptoms of chest discomfort leading up to his initial evaluation at that time. The symptoms were primarily exertional and progressive in nature. He was felt to have suffered myocardial infarction at the time of his initial presentation and by report underwent stenting to 2 vessels, 1 of which was the LAD. The patient was also noted to have an element of reduced LV systolic function which over time appeared to respond to medical treatment. He states that proximately 18 months ago his ejection fraction had improved about 10% into the 40% range. Since his initial intervention he has done well. He apparently completed cardiac rehab and exercises regularly. He plays tennis on a regular basis and recently has been feeling well without exertional symptoms of chest discomfort or dyspnea. However, he has been experiencing symptoms of breathing difficulty. These are paroxysmal in nature. According to the patient they tend to happen before he eats and when he is feeling hungry. There perhaps is some mild associated lightheadedness and chest discomfort, although this discomfort is distinct from the symptoms leading up to his initial evaluation in 2021. He generally eats something and the symptoms will resolved. He believes he has had 5 episodes of this symptom in total. They seem to happen primarily in the morning before breakfast. He is continued his usual activities and does not have exertional symptoms. Perhaps some mild dyspnea when ascending stairs. Again, no symptoms similar to his initial chest discomfort or presenting symptoms in 2021. He has not been aware of any palpitations but does use an Apple Watch. He has noticed some higher heart rates recently. During episodes he will notice a higher heart rate as well. This tends to improve as his symptoms resolved. He has not gotten any warnings about "atrial fibrillation". He had 2 episodes 2 days ago and was prompted by his to visit the emergency room at [facility] in [place]. He described an evaluation which involved a CT scan to exclude pulmonary emboli and 2 serial troponin measurements. He was told that there were no life-threatening problems and to proceed with follow-up on a routine basis with his diving instructor. The patient was visiting his son at [facility] yesterday when he had a typical episode. According to the patient his son then called EMS but by the time the paramedics arrived his symptoms effectively had resolved. He was brought to our facility for an evaluation. He has not had any recurrence of the symptoms since admission. Allergies Allergy/AdvReac Type Severity Reaction Status Date / Time amoxicillin Allergy Intermediate ITCHY RASH Verified 03/29/24 22:46 clopidogrel [From Plavix] Allergy Intermediate ITCHY RASH Verified 03/29/24 22:46 Penicillins Allergy Intermediate ITCHY RASH Verified 03/29/24 22:46 Home Medications Medication Instructions Recorded Confirmed Type aspirin 81 mg tablet,delayed 81 mg PO DAILY 03/29/24 03/29/24 History release dapagliflozin propanediol 10 mg 10 mg PO DAILY 03/29/24 03/29/24 History tablet (Farxiga) losartan 25 mg tablet 12.5 mg PO DAILY 03/29/24 03/29/24 History metoprolol succinate 50 mg 50 mg PO DAILY 03/29/24 03/29/24 History tablet,extended release 24 hr prasugrel 10 mg tablet 10 mg PO DAILY 03/29/24 03/29/24 History rosuvastatin 20 mg tablet 20 mg PO DAILY 03/29/24 03/29/24 History Patient History Social History Smoking Status: Never smoker Hx Alcohol Use: No Hx Substance Use: No Preferred Language: Syrian Communication Ability: Effective Doughnut Maker Required: No Beliefs That Will Affect Care: None Current Living Situation: Spouse Current Living Situation Comment: Lives at home with Other Information That Helps Us Care for You: No Feels Safe at Home: Yes Safety Concerns: Feels Safe At This Time Assistive Devices: None Review of Systems Review of Systems: Per HPI. Some higher blood pressures at times recently. The patient generally will take his metoprolol dose routinely but occasionally will skip his dose of losartan due to concerns of lower blood pressures. Physical Exam Physical Exam: The patient is alert and oriented. Mood and affect appeared normal. He answered all questions appropriately. HEENT: Pupils are equal and reactive to light and accommodation. Extraocular movements are intact. The sclerae are anicteric. Neuro: Cranial nerves intact Lungs: Clear to auscultation bilaterally. He has good air movement without use of accessory muscles. No rales wheezes or rhonchi. Cardiac: Heart demonstrates a regular rate and rhythm. Normal S1 and S2. No murmurs on examination. Pulses: The patient has palpable radial pulses bilaterally that are equal in intensity Extremities: There was no evidence of hypoperfusion. There is no cyanosis or clubbing. There is no edema. Skin: I did not appreciate any rashes on examination today. Results & Data Vital Signs (Past 12 Hours) Vital Signs Temp Pulse Pulse Resp BP BP Pulse Ox 03/30/24 08:00 72 03/30/24 03:39 36.6 C 87 16 141/107 H 97 03/30/24 02:31 89 03/30/24 02:30 36.9 C 92 H 20 138/101 H 97 03/30/24 01:53 20 97 03/30/24 01:04 99 H 24 149/107 H 97 03/29/24 23:47 104 H 15 167/120 H 97 O2 Del Method 03/30/24 08:00 03/30/24 03:39 Room Air 03/30/24 02:31 03/30/24 02:30 Room Air 03/30/24 01:53 Room Air 03/30/24 01:04 Room Air 03/29/24 23:47 Room Air Laboratory Results Abnormal Lab Results 03/29/24 03/29/24 03/29/24 21:50 22:03 22:21 WBC 6.86 RBC 5.36 Hgb 16.0 Hct 46.7 MCV 87.1 MCH 29.9 MCHC 34.3 RDW Std Deviation 39.6 RDW Coeff of Tayler 12.7 Plt Count 181 MPV 9.2 L Immature Gran % (Auto) 0.3 Neut % (Auto) 58.6 Lymph % (Auto) 34.7 Cooper % (Auto) 5.2 Eos % (Auto) 0.9 Baso % (Auto) 0.3 Neut # (Auto) 4.02 Lymph # (Auto) 2.38 Cooper # (Auto) 0.36 Eos # (Auto) 0.06 Baso # (Auto) 0.02 Immature Gran # (Auto) 0.02 PT 10.9 INR 1.0 D-Dimer 350 VBG pH VBG pCO2 VBG pO2 VBG HCO3 VBG O2 Saturation VBG Base Excess Sodium 134 L Potassium 4.2 Chloride 102 Carbon Dioxide 29 Anion Gap 3 BUN 16 Creatinine 1.16 Est Cr Clr Drug Dosing 64.1 Est GFR ( Amer) 82.9 Est GFR (Non-Af Amer) 71.5 BUN/Creatinine Ratio 13.8 Glucose 242 H POC Glucose Estimat Average Glucose Hemoglobin A1c Calcium 8.4 L Magnesium 2.1 Total Bilirubin 0.9 AST 21 ALT 22 Alkaline Phosphatase 95 Troponin I High Sens 21.3 H B-Natriuretic Peptide Total Protein 7.2 Albumin 4.2 Globulin 3.0 Albumin/Globulin Ratio 1.4 Triglycerides Cholesterol LDL Cholesterol, Calc VLDL Cholesterol, Calc HDL Cholesterol Cholesterol/HDL Ratio Urine Color Yellow Urine Appearance Clear Urine pH 6.0 Ur Specific [place] 1.006 Urine Protein Negative Urine Glucose (UA) 2+ H Urine Ketones Negative Urine Blood Negative Urine Nitrite Negative Urine Bilirubin Negative Urine Urobilinogen Negative Ur Leukocyte Esterase Negative Adenovirus (PCR) Not Detected B. pertussis DNA (PCR) Not Detected B.parapertussis DNA PCR Not Detected C. pneumoniae DNA (PCR) Not Detected Coronavirus OC43 (PCR) Not Detected Coronavirus HKU1 (PCR) Not Detected Coronavirus 229E (PCR) Not Detected SARS-CoV-2 (PCR) Not Detected Coronavirus NL63 (PCR) Not Detected Human Metapneumovir PCR Not Detected Influenza Type A (PCR) Not Detected Influenza Type B (PCR) Not Detected M. pneumoniae (PCR) Not Detected Parainfluenza 1 (PCR) Not Detected Parainfluenza 2 (PCR) Not Detected Parainfluenza 3 (PCR) Not Detected Parainfluenza 4 (PCR) Not Detected RSV (PCR) Not Detected Entero/Rhino (PCR) Not Detected 03/29/24 03/30/24 03/30/24 23:46 06:26 07:35 WBC RBC Hgb Hct MCV MCH MCHC RDW Std Deviation RDW Coeff of Tayler Plt Count MPV Immature Gran % (Auto) Neut % (Auto) Lymph % (Auto) Cooper % (Auto) Eos % (Auto) Baso % (Auto) Neut # (Auto) Lymph # (Auto) Cooper # (Auto) Eos # (Auto) Baso # (Auto) Immature Gran # (Auto) PT INR D-Dimer VBG pH 7.41 VBG pCO2 48 VBG pO2 39 VBG HCO3 30 VBG O2 Saturation 64.6 VBG Base Excess 4.8 Sodium Potassium Chloride Carbon Dioxide Anion Gap BUN Creatinine Est Cr Clr Drug Dosing Est GFR ( Amer) Est GFR (Non-Af Amer) BUN/Creatinine Ratio Glucose POC Glucose 123 H Estimat Average Glucose 126 Hemoglobin A1c 6.0 H Calcium Magnesium Total Bilirubin AST ALT Alkaline Phosphatase Troponin I High Sens 24.2 H 21.9 H B-Natriuretic Peptide 278 H Total Protein Albumin Globulin Albumin/Globulin Ratio Triglycerides 145 Cholesterol 139 LDL Cholesterol, Calc 74 VLDL Cholesterol, Calc 29 HDL Cholesterol 36 Cholesterol/HDL Ratio 3.9 Urine Color Urine Appearance Urine pH Ur Specific [place] Urine Protein Urine Glucose (UA) Urine Ketones Urine Blood Urine Nitrite Urine Bilirubin Urine Urobilinogen Ur Leukocyte Esterase Adenovirus (PCR) B. pertussis DNA (PCR) B.parapertussis DNA PCR C. pneumoniae DNA (PCR) Coronavirus OC43 (PCR) Coronavirus HKU1 (PCR) Coronavirus 229E (PCR) SARS-CoV-2 (PCR) Coronavirus NL63 (PCR) Human Metapneumovir PCR Influenza Type A (PCR) Influenza Type B (PCR) M. pneumoniae (PCR) Parainfluenza 1 (PCR) Parainfluenza 2 (PCR) Parainfluenza 3 (PCR) Parainfluenza 4 (PCR) RSV (PCR) Entero/Rhino (PCR) 03/30/24 08:41 WBC RBC Hgb Hct MCV MCH MCHC RDW Std Deviation RDW Coeff of Tayler Plt Count MPV Immature Gran % (Auto) Neut % (Auto) Lymph % (Auto) Cooper % (Auto) Eos % (Auto) Baso % (Auto) Neut # (Auto) Lymph # (Auto) Cooper # (Auto) Eos # (Auto) Baso # (Auto) Immature Gran # (Auto) PT INR D-Dimer VBG pH VBG pCO2 VBG pO2 VBG HCO3 VBG O2 Saturation VBG Base Excess Sodium Potassium Chloride Carbon Dioxide Anion Gap BUN Creatinine Est Cr Clr Drug Dosing Est GFR ( Amer) Est GFR (Non-Af Amer) BUN/Creatinine Ratio Glucose POC Glucose Estimat Average Glucose Hemoglobin A1c Calcium Magnesium Total Bilirubin AST ALT Alkaline Phosphatase Troponin I High Sens 21.0 H B-Natriuretic Peptide Total Protein Albumin Globulin Albumin/Globulin Ratio Triglycerides Cholesterol LDL Cholesterol, Calc VLDL Cholesterol, Calc HDL Cholesterol Cholesterol/HDL Ratio Urine Color Urine Appearance Urine pH Ur Specific [place] Urine Protein Urine Glucose (UA) Urine Ketones Urine Blood Urine Nitrite Urine Bilirubin Urine Urobilinogen Ur Leukocyte Esterase Adenovirus (PCR) B. pertussis DNA (PCR) B.parapertussis DNA PCR C. pneumoniae DNA (PCR) Coronavirus OC43 (PCR) Coronavirus HKU1 (PCR) Coronavirus 229E (PCR) SARS-CoV-2 (PCR) Coronavirus NL63 (PCR) Human Metapneumovir PCR Influenza Type A (PCR) Influenza Type B (PCR) M. pneumoniae (PCR) Parainfluenza 1 (PCR) Parainfluenza 2 (PCR) Parainfluenza 3 (PCR) Parainfluenza 4 (PCR) RSV (PCR) Entero/Rhino (PCR) Diagnostic Findings Chest x-ray suggested mild interstitial edema. Echocardiogram performed today revealed moderately reduced LV systolic function with an ejection fraction of 30 to 35%. Regional wall motion abnormalities with general global hypokinesis. Moderate mitral regurgitation and stage III diastolic dysfunction. Mildly dilated left atrium PG Care Time/CCT Total # of Minutes Spent Total Time Spent with Patient: Total time spent is greater than 50% in coordination of care (as documented) at patient's floor/unit and/or counseling patient: Coding Level of Care Code 70262 INT INP/OBS CARE MIN Diagnoses Coronary artery disease I25.10 Ischemic cardiomyopathy I25.5 Acute on chronic systolic heart failure I50.23 Shortness of breath R06.02 Hyperlipidemia E78.5 Hypertension I10 Hypertension type: unspecified (6) Hypertension Hypertension type: unspecified Qualified Code(s): I10 - Essential (primary) hypertension
[2024-03-30 10:49] VITALS: TEMP 98.8
[2024-03-30] MEDS: FUROSEMIDE INJ 20 MG/2 ML VIAL IV ONE (11:15)
--- NOTE | 2024-03-30 14:24 | Discharge Summary ---
Date of Service March 30, 2024 Admission HPI Per Admitting Provider Patient is a 54-year-old male who presents to the hospital with shortness of breath. Patient has been having some shortness of breath the last few days. States that when he feels hungry states that shortness of breath and that it gets better with eating. He also states that he is having some chest tightness with the shortness of breath. States that he is also having some shortness of breath with exertion that has been going on for some time. He went to see the ER yesterday in [place]. States that that he was checked for a clot in his lung which was negative. Does have a history of 3 stents placed back in September 2022 at the same hospital that he went to the emergency room yesterday. Patient was up visiting his son who goes to [facility]. Denies any fever, chills, headache, or cough. Principal Diagnosis Paroxysmal dyspnea Discharge Exam General: patient resting comfortably, NAD, non-toxic in appearance, answers questions appropriately. Skin: warm, dry, intact HEENT: NC/AT, anicteric sclera, conjunctiva without injection, moist mucus membranes. Heart: +S1/S2, regular, no m/r/g Lungs: equal air entry bilaterally, no rales/rhonchi/wheezes Abd: +BS, soft, NT/ND Ext: warm, no clubbing/cyanosis or edema Neuro: nonfocal, speech intact, no facial droop, moving all extremities. Discharge Data Allergies Allergy/AdvReac Type Severity Reaction Status Date / Time amoxicillin Allergy Intermediate ITCHY RASH Verified 03/29/24 22:46 clopidogrel [From Plavix] Allergy Intermediate ITCHY RASH Verified 03/29/24 22:46 Penicillins Allergy Intermediate ITCHY RASH Verified 03/29/24 22:46 Consultations 03/29/24 23:24 ED Decision to Admit Stat 03/30/24 02:37 Consult Cardiology Routine Ordered Studies Laboratory Results WBC 6.86 K/ul (4.8-10.8) 03/29/24 21:50 RBC 5.36 M/uL (4.70-6.10) 03/29/24 21:50 Hgb 16.0 g/dl (14.0-18.0) 03/29/24 21:50 Hct 46.7 % (42.0-52.0) 03/29/24 21:50 MCV 87.1 fL (80.0-100.0) 03/29/24 21:50 MCH 29.9 pg (25.0-34.0) 03/29/24 21:50 MCHC 34.3 g/dL (32.0-36.0) 03/29/24 21:50 RDW Std Deviation 39.6 fL (36.4-46.3) 03/29/24 21:50 RDW Coeff of Tayler 12.7 % (11.5-14.5) 03/29/24 21:50 Plt Count 181 K/uL (130-400) 03/29/24 21:50 MPV 9.2 fL (9.4-12.4) L 03/29/24 21:50 Immature Gran % (Auto) 0.3 % 03/29/24 21:50 Neut % (Auto) 58.6 % 03/29/24 21:50 Lymph % (Auto) 34.7 % 03/29/24 21:50 Fisher % (Auto) 5.2 % 03/29/24 21:50 Eos % (Auto) 0.9 % 03/29/24 21:50 Baso % (Auto) 0.3 % 03/29/24 21:50 Neut # (Auto) 4.02 K/uL (1.40-6.50) 03/29/24 21:50 Lymph # (Auto) 2.38 K/uL (1.20-3.40) 03/29/24 21:50 Fisher # (Auto) 0.36 K/uL (0.11-0.59) 03/29/24 21:50 Eos # (Auto) 0.06 K/uL (0.00-0.50) 03/29/24 21:50 Baso # (Auto) 0.02 K/uL (0.00-0.20) 03/29/24 21:50 Immature Gran # (Auto) 0.02 K/uL (0.01-0.20) 03/29/24 21:50 PT 10.9 Seconds (9.0-12.0) 03/29/24 21:50 INR 1.0 (0.9-1.1) 03/29/24 21:50 D-Dimer 350 ug/L FEU (0-500) 08/31/24 21:50 VBG pH 7.41 (7.36-7.41) 03/29/24 23:46 VBG pCO2 48 mmHg (38-50) 03/29/24 23:46 VBG pO2 39 mmHg 03/29/24 23:46 VBG HCO3 30 mmol/L 03/29/24 23:46 VBG O2 Saturation 64.6 % 03/29/24 23:46 VBG Base Excess 4.8 mEq/L 03/29/24 23:46 Sodium 134 mmol/L (136-145) L 03/29/24 21:50 Potassium 4.2 mmol/L (3.5-5.1) 03/29/24 21:50 Chloride 102 mmol/L (98-107) 03/29/24 21:50 Carbon Dioxide 29 mmol/L (21-32) 03/29/24 21:50 Anion Gap 3 (3-11) 03/29/24 21:50 BUN 16 mg/dl (6-23) 03/29/24 21:50 Creatinine 1.16 mg/dl (0.6-1.4) 03/29/24 21:50 Est Cr Clr Drug Dosing 64.1 ml/min 03/29/24 21:50 Est GFR ( Amer) 82.9 ml/min 03/29/24 21:50 Est GFR (Non-Af Amer) 71.5 ml/min 03/29/24 21:50 BUN/Creatinine Ratio 13.8 (10-20) 03/29/24 21:50 Glucose 242 mg/dl (70-99(Fasting)) H 03/29/24 21:50 POC Glucose 152 mg/dl (70-99) H 03/30/24 11:16 Estimat Average Glucose 126 mg/dl 03/30/24 06:26 Hemoglobin A1c 6.0 % (4.5-5.6) H 03/30/24 06:26 Calcium 8.4 mg/dl (8.6-10.3) L 03/29/24 21:50 Magnesium 2.1 mg/dl (1.7-2.4) 03/29/24 21:50 Total Bilirubin 0.9 mg/dl (0.2-1.0) 03/29/24 21:50 AST 21 U/L (13-39) 03/29/24 21:50 ALT 22 U/L (7-52) 03/29/24 21:50 Alkaline Phosphatase 95 U/L (34-104) 03/29/24 21:50 Troponin I High Sens 19.1 pg/ml (0-20) 03/30/24 10:50 B-Natriuretic Peptide 278 pg/ml (0-100) H 03/29/24 23:46 Total Protein 7.2 gm/dl (6.0-8.3) 03/29/24 21:50 Albumin 4.2 gm/dl (3.4-5.0) 03/29/24 21:50 Globulin 3.0 gm/dl (2.5-4.0) 03/29/24 21:50 Albumin/Globulin Ratio 1.4 (0.9-2) 03/29/24 21:50 Triglycerides 145 mg/dl (0-150) 03/30/24 06:26 Cholesterol 139 mg/dl (0-200) 03/30/24 06:26 LDL Cholesterol, Calc 74 mg/dl 03/30/24 06:26 VLDL Cholesterol, Calc 29 mg/dl (0-30) 03/30/24 06:26 HDL Cholesterol 36 mg/dl 03/30/24 06:26 Cholesterol/HDL Ratio 3.9 (0-5) 03/30/24 06:26 Urine Color Yellow 03/29/24 22:21 Urine Appearance Clear (Clear) 03/29/24 22:21 Urine pH 6.0 (4.5-7.5) 03/29/24 22:21 Ur Specific [place] 1.006 (1.000-1.030) 03/29/24 22:21 Urine Protein Negative (Negative) 03/29/24 22:21 Urine Glucose (UA) 2+ (Negative) H 03/29/24 22:21 Urine Ketones Negative (Negative) 03/29/24 22:21 Urine Blood Negative (Negative) 03/29/24 22:21 Urine Nitrite Negative (Negative) 03/29/24 22:21 Urine Bilirubin Negative (Negative) 03/29/24 22:21 Urine Urobilinogen Negative (Negative) 03/29/24 22:21 Ur Leukocyte Esterase Negative (Negative) 03/29/24 22:21 Adenovirus (PCR) Not Detected (NotDetected) 03/29/24 22:03 B. pertussis DNA (PCR) Not Detected (NotDetected) 03/29/24 22:03 B.parapertussis DNA PCR Not Detected (NotDetected) 03/29/24 22:03 C. pneumoniae DNA (PCR) Not Detected (NotDetected) 03/29/24 22:03 Coronavirus OC43 (PCR) Not Detected (NotDetected) 03/29/24 22:03 Coronavirus HKU1 (PCR) Not Detected (NotDetected) 03/29/24 22:03 Coronavirus 229E (PCR) Not Detected (NotDetected) 03/29/24 22:03 SARS-CoV-2 (PCR) Not Detected (NotDetected) 03/29/24 22:03 Coronavirus NL63 (PCR) Not Detected (NotDetected) 03/29/24 22:03 Human Metapneumovir PCR Not Detected (NotDetected) 03/29/24 22:03 Influenza Type A (PCR) Not Detected (NotDetected) 03/29/24 22:03 Influenza Type B (PCR) Not Detected (NotDetected) 03/29/24 22:03 M. pneumoniae (PCR) Not Detected (NotDetected) 03/29/24 22:03 Parainfluenza 1 (PCR) Not Detected (NotDetected) 03/29/24 22:03 Parainfluenza 2 (PCR) Not Detected (NotDetected) 03/29/24 22:03 Parainfluenza 3 (PCR) Not Detected (NotDetected) 03/29/24 22:03 Parainfluenza 4 (PCR) Not Detected (NotDetected) 03/29/24 22:03 RSV (PCR) Not Detected (NotDetected) 03/29/24 22:03 Entero/Rhino (PCR) Not Detected (NotDetected) 03/29/24 22:03 Impressions Chest X-Ray 03/29/24 21:56 XR chest 1V portable CLINICAL HISTORY: Dyspnea. COMPARISON STUDY: No previous studies for comparison. FINDINGS: Lung volumes are normal. There is no pneumothorax or pleural effusion. Cardiac size is at the upper limits of normal. There is lower lobe predominant interstitial thickening with hazy right basilar opacity. IMPRESSION: Lower lung predominant interstitial thickening with hazy right basilar opacity. Mild interstitial pulmonary edema is favored. An infectious process could appear similar although is considered less likely. ACT 112: Negative or not required by law. Electronically signed by: Mark Winslow M.D. 03/30/2024 7:27 AM Hospital Course (1) Paroxysmal dyspnea: - Patient reports that he feels SOB at rest when he is hungry - Episode generally last 5-10 minutes although in the last week episodes have lasted 30-40 min - Patient is generally active, plays tennis, reports no symptoms during exertion - CXR in ED showed lower lobe interstitial thickening with hazy right basilar opacity favoring pulmonary edema - 1 dose of Lasix 20 mg IV given - No SOB symptoms today (2) Chest discomfort: - Patient reports some chest discomfort during rest - Hx of coronary artery disease, ischemic cardiomyopathy, and decompensated acute systolic heart failure - At times this discomfort occurs with SOB episodes and GI symptoms - EKG: sinus tachycardia, biatrial enlargement, left anterior fasicular block, LVH, lateral infarct age undetermined - Echo: LVEF: 30-35%, Left atrial dilation, grade 3 diastolic dysfunction, mild to moderate mitral regurgitation - High sensitivity Troponin: 21.3, 24.2, 21.9, 21.0 and most recent 19.1 - Patient's discomfort more likely to be related to ongoing GERD symptoms - Continue home meds: rosuvastatin 20 mg, prasugrel 10 mg, metoprolol succinate ER 50 mg (3) GERD (gastroesophageal reflux disease): - Patient normally takes Nexium once a day for increased acidity and reflux symptoms - Patient reports increased SOB and chest discomfort when he is feeling GI symptoms - Will add Pepcid 20 mg PO PRN to help acidity and heartburn symptoms (4) Hypertension: - Continue home Losartan 12.5 mg PO daily Total Time Total Time Spent Total Time Spent (In Minutes): <30 Discharge Plan Discharge Items Patient Disposition: Home - Self-Care Reason For Visit: SOB, CP Discharge Diagnosis: Paroxysmal dyspnea Activity: Per Instructions section Non-emergency contact: Primary Care Provider Call non-emergency contact if: your symptoms worsen and your pain is not controlled Follow-up/Referrals: Nathalia Larson PA-C [Primary Care Provider] - Diet: Heart Healthy Addtl Attending Provider Instructions: You were admitted to the hospital for paroxysmal dyspnea or short periods of time when you become short of breath. You were treated with Lasix to help drain some of the fluid seen on chest x-ray that was suspicious for pulmonary edema. You have mentioned that this shortness of breath and chest discomfort mainly occurs when you are hungry before meal times and feel that your stomach is upset with increased sensation of acidity and heartburn. Famotidine (Pepcid) will be prescribed along side of the Nexium that you take daily to help control some of the increased acid production symptoms you have been feeling. It is important that you continue taking the Nexium on a consistent basis because the body adapts to a proton pump inhibitor like Nexium by creating more pumps. So, suddenly stopping your proton pump inhibitor (Nexium) can cause increased acidity. Famotidine can work adjunctively with Nexium to potentially help decrease the acid production in your stomach. If upon taking Famotidine your symptoms do not improve make sure to stop taking this medication and relay this information to your primary care provider. A discharge summary will be sent to your primary care physician to ensure continuity of care. Please bring this discharge summary with you to your next office appointment so that your provider can review it at that time. Follow-up appointments: Make a follow-up appointment with your PCP within the next week. It is very important that you follow up with them shortly after discharge from the hospital. Medications: Your medication list has been reviewed and reconciled upon discharge to ensure accuracy and continuity of care. An updated list of all your medications is included with your hospital discharge paperwork. Please review this list closely, and make note of any changes. We sent a new medication called Famotidine to your pharmacy. Take Famotidine 20 mg 1 tablet as needed for increased acid reflux. Do not exceed more than 2 doses per day, and stop this medication if you do not gain any benefit in reducing heartburn, indigestion, and other GI symptoms If you have any issues filling these prescriptions, please call [phone] and ask to leave a message for Dr. Ly Take your medications as instructed; do not skip a dose of your medicines. Make sure all of your doctors know every medicine you are taking (including [id number] medicines, vitamins, and supplements). Call your primary care provider before taking any new medicines (including over- the-counter medicines, vitamins, and supplements), because some of these may interact with your current medications, or may make your symptoms worse. Tell your primary care provider if you cannot afford your medications. Please call [facility] at and ask for health information management for more information about your stay and health records. You can also call and sign up for the [facility] patient portal to have access to all of your health documentation via internet CONTACT YOUR PRIMARY CARE PROVIDER if you experience any of the following: Worsening of symptoms Fever, chills, or fatigue Difficulty following your treatment plan, or difficulty taking medications CALL 911 OR GO TO THE EMERGENCY DEPARTMENT if you experience any of the following: Sudden, severe abdominal pain or nausea/vomiting Severe chest pain, or chest pain that radiates (moves) to your jaw or arm Sudden, severe shortness of breath or difficulty breathing Thank you for allowing us to participate in your care. Pending Studies at Discharge: No Stand-Alone Forms: My [facility], Smoking Cessation Medications and DC Order Prescriptions: New famotidine 20 mg tablet 20 mg PO DAILY MDD 2 tabs PRN (Reason: acid reflux) Qty: 30 1RF Continued metoprolol succinate 50 mg Tablet Extended Release 24 Hr 50 mg PO DAILY aspirin 81 mg Tablet,Delayed Release (Dr/Ec) 81 mg PO DAILY losartan 25 mg Tablet 12.5 mg PO DAILY rosuvastatin 20 mg Tablet 20 mg PO DAILY prasugrel 10 mg Tablet 10 mg PO DAILY dapagliflozin propanediol [Farxiga] 10 mg Tablet 10 mg PO DAILY Discharge Orders: Discharge Order (Routine); Ordered 03/30/24 Ordered By: Mauricio Kowalski/Other Patient Handouts: Prediabetes, 5 Steps for Eating Healthier Admission Data Admit Date/Time: 03/30/24 00:18 Attending Provider: Cristofer Benites Admit Provider: Rhys Sosa Primary Care Provider: Nathalia Larson Other Providers: Akash Gonzales; Flaquito Anton; Hayden Levi; Asad Michael; Lenard Busch; Steve Soler; Chandan Cardenas Jr; Goldy Colmenares; Shreya Levy; Clary Wooten; David Hopkins; David Mcdowell; Jerel Yusuf; Shreya Rodrigez; Tye Cary; Aracelis Del Toro; Stevan Hollingsworth; Noah Baig; Stephen Hilliard; Anshu Mead Other Interventions: Discharge Summary Assessment (RN) Last Done: 03/30/24 15:36 Supervising Physician Co-Signing Physician Notes I personally examined the patient and verified all prabhakar points of history and exam, discussed case, and agree with decision making with Dr Ly Feeling better overall. Feeling up to going home. Vitals noted, in general he is awake and alert pleasant no distress. HEENT normocephalic atraumatic mucous membranes moist. Breathing unlabored no accessory muscle use good effort. Skin without rashes pallor or icterus. Mild shortness of breathseems to be due to mild pulmonary edema. Seems to have improved with Lasix. Discussed sodium reduction. Discussed the possible need for chronic diuretics if this recursbut hopefully diet changes alone should suffice indigestiongiven that his picture was not consistent with angina after further review, seems that his upper GI symptoms truly were upper GI symptoms. Again diet change, but in the meantime adding an H2 on top of his PPI for short time to mitigate symptoms. Safe/stable for home Resident Activity Tracking Resident Involvement: Resident Care Provided Care Provided: Adult Hospital Medicine
[2024-03-30] MEDS: FAMOTIDINE 20 MG TAB PO ONE (15:25)
[2024-03-30 15:39] VITALS: BP 138/101; PULSE 87
--- NOTE | 2024-03-30 18:02 | Billing Data ---
Date of Service March 30, 2024 Coding Level of Care Code 26490 IN/OBS DISCH 30 MIN/LESS
== END 2024-03-30 16:20 | disposition home or self-care (01) ==
LOC: 2S 21:42 → ED 21:42 → SUATTDRO 03-30 00:18 → 2S 03-30 01:53